=== PATIENT | male | born 1985 | race Caucasian/White ===

== ENCOUNTER 2019-05-02 15:34 | Emergency (ER) | payer OTHER, MEDICAID, SELFPAY ==
[2019-05-02 16:03] VITALS: BP 134/76; PULSE 97; RESP 18; TEMP 36.3; O2SAT 99; BMI 22.5
--- NOTE | 2019-05-02 16:34 | ED.SKABFB ---
HPI - Skin/Abscess/Foreign Bdy General Chief complaint: Skin/Abscess/Foreign Body Stated complaint: states he has an abcess thats draining Time Seen by Provider: 05/02/19 16:28 Source: patient Mode of arrival: ambulatory Limitations: no limitations History of Present Illness HPI narrative: The patient is a 33-year-old male who presents with a wound re-evaluation. He had a large abscess drained 4 days ago in [place] on his left arm. He at that time said it was rather large he let it go for quite a long time he also had a rash all over his body. He says he overall is feeling better the rash is improving it is no longer draining he feels better he is continuing to take his Bactrim. He was told to have a re-evaluated at some point which is why he is here today. He denies any fevers or chills. Related Data Allergies Allergy/AdvReac Type Severity Reaction Status Date / Time No Known Drug Allergies Allergy Verified 05/02/19 16:10 Review of Systems Review of Systems GENERAL: Denies chills, fatigue, malaise, fever, sweats, travel HEENT: Denies sinus pain, ear pain, sore throat, difficulty swallowing, neck pain RESPIRATORY: Denies dyspnea, cough, wheezing, hemoptysis, sputum. CARDIOVASCULAR: Denies chest pain, palpitations, orthopnea, edema GASTROINTESTINAL: Denies nausea, vomiting, abdominal pain, diarrhea, constipation, melena. : Denies dysuria, frequency, incontinence, hematuria, urinary retention, flank pain. MUSCULOSKELETAL: Denies weakness, joint pain, or bony pain SKIN: See HPI NEUROLOGIC: Denies weakness, dizziness, headache, numbness, change in speech, confusion PSYCHIATRIC: No concerning psychosocial issues. 12 point review of systems is negative except for those stated above and HPI [facility] Medical History Patient denies significant medical history (Acute) Social History Smoking Status: Current every day smoker Social History Smoking Status: Current every day smoker Exam Initial Vital Signs Initial Vital Signs: Vital Signs Temperature 97.4 F L 05/02/19 16:03 Pulse Rate 97 H 05/02/19 16:03 Respiratory Rate 18 05/02/19 16:03 Blood Pressure 134/76 08/03/19 16:03 Pulse Oximetry 99 05/02/19 16:03 GENERAL: Well-appearing, well-nourished and in no acute distress. CARDIOVASCULAR: peripheral pulses in tact, cap refill <2 sec RESPIRATORY: No respiratory distress, speaks in full sentences without difficulty EXTREMITIES: Normal range of motion, no clubbing or edema. Neurovascularly intact NEUROLOGICAL: Cranial nerves II through XII grossly intact. Normal gait and speech. SKIN: Left deltoid 2 cm incision site noted. No drainage at site minimal surrounding erythema overall looks significantly improved. He is noted to have rash on his legs which he states is improving. Non blanchable spotty erythematous areas. Course Vital Signs - 8 hr 05/02/19 16:03 Temperature 97.4 F L Pulse Rate 97 H Respiratory Rate 18 Blood Pressure 134/76 Pulse Oximetry 99 MDM - Skin/Abscess/Foreign Bdy MDM Narrative Medical decision making narrative: I did place a Steri-Strip over the incision site. Told him to keep it clean and dry with soap and water also discussed with him warning signs of recurrent infection. Overall he appears nontoxic his rash is improving his arm and abscess site looks good to me. Discharge Plan Departure Patient Disposition: Home Clinical Impression: Abscess of skin or subcutaneous tissue Qualifiers: Site of cutaneous abscess: extremity Site of cutaneous abscess of extremity: upper extremity Laterality: left Qualified Code(s): L02.414 - Cutaneous abscess of left upper limb Discharge Date/Time: 05/02/19 16:42 Interventions: ED Discharge Assessment Last Done: 05/02/19 16:41 Instructions: DI for Cellulitis -- Adult, DI for Skin Abscess Activity Restrictions/Additional Instructions: *You have been diagnosed with healing wound abscess *What to do: At this time continue taking her antibiotics. Things overall appear that they are healing. Keep area clean and dry with soap and water and keep it covered. It will take 1-2 weeks for that that incision site to heal *Continue to take medications as directed Finish Bactrim as prescribed *Follow up with your primary care provider in 2-3 days *Return to ER if you should have increasing redness drainage swelling, fevers chills or any new, worsening or concerning symptoms Referrals: [facility] [Outside]
== END 2019-05-02 16:42 | disposition home or self-care (01) ==
PROVIDERS: Emergency Provider Emergency Medicine
DX: L02.414 Cutaneous abscess of left upper limb (principal)
CPT/HCPCS: 99282

== ENCOUNTER 2020-12-10 18:54 | Emergency (ER) | payer OTHER, MEDICAID, SELFPAY ==
[2020-12-10 19:26] VITALS: BP 165/100; PULSE 88; RESP 16; TEMP 36.6; O2SAT 97; BMI 28.8
[2020-12-10] MEDS: dexAMETHasone 4 MG TABLET 12 MG PO (22:11)
[2020-12-10] MEDS: KETOROLAC 60 MG/2 ML VIAL 30 MG IM (22:11)
[2020-12-10 22:18] VITALS: BP 144/94; PULSE 73; RESP 14; O2SAT 99
--- NOTE | 2020-12-11 07:59 | ED.NECK ---
HPI - Neck Pain/Injury General Chief Complaint: Neck Pain/Injury Stated Complaint: Neck pain and migraines x1 wk, post trampoline par Time Seen by Provider: 12/10/20 21:48 History of Present Illness HPI Narrative: 35-year-old gentleman who was playing on a trampoline about a week ago did a back flip and landed up bit off. Does not describe significant neck pain or loss of consciousness the time however, over the last week he has had increasing right-sided neck and trapezius muscle pain with tension at the right occipital insertion site and increasing headache over the same time frame. He notes with sleeping at night he is having alternating paresthesias in both arms that her entirely positional and resolve once they were repositioned. He reports no change to vision and no additional neurologic symptoms. No fevers, cough, chills, palpitations, chest pain, dyspnea, abdominal pain. Related Data Allergies Allergy/AdvReac Type Severity Reaction Status Date / Time No Known Drug Allergies Allergy Verified 05/02/19 16:10 Review of Systems Review of Systems Narrative: Remainder of review of systems including constitutional, ENT, cardiovascular, respiratory, GI, , musculoskeletal, skin, neurologic and psychiatric systems reviewed and are unremarkable except as noted in HPI. Patient History Medical History Patient denies significant medical history Social History Smoking Status: Current every day smoker Smoking Status: Current every day smoker Substance Use Type: IV drugs Exam Narrative Exam Narrative: General: Alert appropriate in no acute distress HEENT: Significant tenderness of the right occipital insertion along the right cervical spine with significant right trapezius muscle spasm. Respiratory: Able to speak in full sentences, no obvious respiratory distress Skin: No obvious rashes, warm and dry Neurologic: Grossly intact no obvious asymmetries or abnormalities Psych, appropriate insight and affect, cooperative Initial Vital Signs Initial Vital Signs: Vital Signs Temperature 97.8 F 12/10/20 19:26 Pulse Rate 88 12/10/20 19:26 Respiratory Rate 16 12/10/20 19:26 Blood Pressure 165/100 H 12/10/20 19:26 Pulse Oximetry 97 12/10/20 19:26 Course Orders Ordered: Discontinued Medications Dexamethasone (Dexamethasone 4 Mg Tablet) 12 mg PO NOW ONE Stop: 12/10/20 21:57 Last Admin: 12/10/20 22:11 Dose: 12 mg Documented by: MARV Ketorolac Tromethamine (Ketorolac 60 Mg/2 Ml Vial) 30 mg IM NOW ONE Stop: 12/10/20 21:57 Last Admin: 12/10/20 22:11 Dose: 30 mg Documented by: MARV MDM - Neck Pain/Injury MDM Narrative Medical decision making narrative: 35-year-old gentleman with acute neck strain and trapezius spasm causing tension to the right occipital insertion site which is causing his headaches. No suggestion of acute ligamentous injury or bony damage. No evidence for intracranial hemorrhage or need for additional imaging at this time. Discussed the appropriate pain management and reassurance is given. He is safe for home discharge Discharge Plan Departure Patient Disposition: Home Clinical Impression: Headache, occipital Strain of neck muscle Qualifiers: Encounter type: initial encounter Qualified Code(s): S16.1XXA - Strain of muscle, fascia and tendon at neck level, initial encounter Instructions: DI for Neck Pain Activity Restrictions/Additional Instructions: Thank you for coming in today You have a rather classic injury pattern of an acute with flash/neck strain injury. There is no clinical indication for bleeding inside your head or acute nerve damage. The muscle spasming in tenderness on the right side of your neck from the acute strain is pulling on the bottom part of the right side of your skull which is causing the severe headache. This is all going to resolve. Using ice and massage can help. Using 400 mg of ibuprofen (2 cymw-bkk-wkdszss pills) and 1 Tylenol every 6 hours can be very helpful in controlling pain. In the emergency room your given a shot of Toradol to help with the acute pain and a dose of Decadron which is a powerful steroid to help reduce the inflammation. If you have new or worsening symptoms, please feel free to return to the ER.
== END 2020-12-10 22:20 | disposition home or self-care (01) ==
PROVIDERS: Emergency Provider Emergency Medicine
DX: S16.1XXA Strain of muscle, fascia and tendon at neck level, initial encounter (principal); R51.9 Headache, unspecified; W09.8XXA Fall on or from other playground equipment, initial encounter
CPT/HCPCS: 96372; 99281; 99283; J1885

== ENCOUNTER 2023-01-20 03:33 | Emergency (ER) | payer OTHER, MEDICAID, SELFPAY ==
[2023-01-20] VITALS (7 sets, daily range): BP systolic 164; BP diastolic 101; PULSE 106–130; RESP 18–22; TEMP 36.6; O2SAT 96–98; BMI 25.5
[2023-01-20 04:38] LABS: Influenza A - CEPHEID Flu A NEGATIVE (NEGATIVE); Influenza B - CEPHEID Flu B NEGATIVE (NEGATIVE); Respiratory Syncytial Virus Negative (Negative)
[2023-01-20 04:39] LABS: COVID-19 CEPHEID 4-PLEX PCR Negative (Negative)
--- NOTE | 2023-01-20 04:42 | ED.GENADULT ---
HPI - General Adult General Chief complaint: Upper Respiratory Symptoms Stated complaint: sinus problems Time Seen by Provider: 01/20/23 03:49 Source: patient Mode of arrival: Ambulatory History of Present Illness HPI narrative: Patient is a 37-year-old male. His homeless. Is here for evaluation of approximately 3 weeks of sinus congestion and runny nose and cough. He states that he has been trying mmoq-klx-jnkheul cold medications without any improvement in the symptoms. He states that it feels like it is now down into his chest. Has been coughing. No fevers. No rashes. He did arrived tachycardic. He states that [place] and [place] a bunch of coffee which is why his heart rate was fast. Related Data Allergies Allergy/AdvReac Type Severity Reaction Status Date / Time No Known Drug Allergies Allergy Verified 05/02/19 16:10 Review of Systems Constitutional Constitutional: Reports system reviewed and no additional complaints, except as documented ENT Ears, Nose, Mouth, and Throat: Reports system reviewed and no additional complaints, except as documented Respiratory Respiratory: Reports system reviewed and no additional complaints, except as documented Integumentary/Breasts Skin/Breast: Reports system reviewed and no additional complaints, except as documented Allergic/Immunologic Allergic/Immunologic: Reports system reviewed and no additional complaints, except as documented Patient History Medical History (Updated 01/20/23 @ 05:44 by Alberto Pierson DO) Patient denies significant medical history Social History Smoking Status: Current every day smoker Smoking Status: Current every day smoker Substance Use Type: IV drugs Exam Initial Vital Signs Initial Vital Signs: Vital Signs Pulse Rate 127 H 01/20/23 03:41 Pulse Oximetry 97 01/20/23 03:41 Const General: cooperative and comfortable HENMT Head: normal to inspection and normocephalic Ears: TM's normal bilaterally Resp Effort & Inspection: normal respiratory effort Auscultation: clear to auscultation bilaterally Cardio Rate: tachycardic Rhythm: regular rhythm Skin General: no rashes or lesions noted Neuro General: patient alert, patient awake, patient oriented x3 and moves all extremities Speech: speech normal Extrem General: normal to inspection and capillary refill normal Psych Appearance: grossly normal and well kempt Course Orders Ordered: ED Orders 01/20/23 03:59 Covid-19 + FLU A/B + RSV - PCR Stat 01/20/23 04:45 XR chest 1V Stat Vital Signs Vital signs: Vital Signs - 8 hr 01/20/23 03:48 01/20/23 04:28 01/20/23 03:41 Temperature 97.9 F Pulse Rate 130 H 106 H 127 H Respiratory Rate 22 Blood Pressure 164/101 H Pulse Oximetry 98 97 Oxygen Delivery Method Room Air 01/20/23 04:00 Temperature Pulse Rate 123 H Respiratory Rate Blood Pressure Pulse Oximetry 97 Oxygen Delivery Method Medical Decision Making Lab Data Lab results reviewed: Yes I reviewed the patient's lab results. Labs: Lab Results 01/20/23 Range/Units 03:59 SARS-CoV-2 (PCR) Negative (Negative) Influenza A (RT-PCR) Flu a negative (NEGATIVE) Influenza B (RT-PCR) Flu b negative (NEGATIVE) RSV (PCR) Negative (Negative) Imaging Data Chest x-ray: Radiologist's Impression: No cardiopulmonary pathology MDM Narrative Medical decision making narrative: Respiratory panel is negative however this only tested for the flu and COVID and RSV. His chest x-ray is unremarkable. His lungs are clear. He is nontoxic appearing. Is tachycardic but he states he [place] and [place] ?a bunch of coffee? I have low suspicion for sepsis. There was no indication for antibiotics. No indication for admission the hospital. He is not hypoxic. Had a long discussion with him regarding this. The plan will be is to have him take ccin-rse-fnelkhi antihistamine such as Claritin or Zyrtec and also use a nasal spray such as Flonase or Nasonex. I talked with him about this as well. He was given return precautions. He expressed understanding and agreement. Discharge Plan Departure Patient Disposition: Home Clinical Impression: Upper respiratory infection Instructions: DI for Viral Upper Respiratory Infection -- Adult Activity Restrictions/Additional Instructions: I recommend that you consider taking the ppue-ydh-cfhyuuf antihistamine such as Claritin or Lisa or Zyrtec. The generic versions of these medications is appropriate. You can also consider taking nasal spray such as Flonase or Nasonex. Again the generic versions are appropriate as well. Contact your primary doctor for a follow-up. Return to the emergency department for new symptoms. Stand Alone Forms: Patient Portal/API
--- NOTE | 2023-01-20 04:45 | DI.RAD.S_ITS ---
PROCEDURE: XR CHEST 1V INDICATIONS: productive cough and SOB eval for PNA TECHNIQUE: One view of the chest was acquired. COMPARISON: None. FINDINGS: Surgical changes and devices: None. Lungs and pleura: Lungs are clear. No pleural effusions or pneumothorax. Mediastinum: Mediastinal contours appear normal. Heart size is normal. Bones and chest wall: No suspicious bony lesions. Overlying soft tissues appear unremarkable. IMPRESSION: No acute cardiopulmonary findings Approved by: Antwon Carney M.D. on 01/20/2023 at 8:55
== END 2023-01-20 05:52 | disposition home or self-care (01) ==
PROVIDERS: Emergency Provider Emergency Medicine
DX: J06.9 Acute upper respiratory infection, unspecified (principal); R00.0 Tachycardia, unspecified; Z20.822 Contact with and (suspected) exposure to COVID-19
CPT/HCPCS: 0241U; 71045; 99282; 99283